=== PATIENT | male | born 1955 | race Caucasian/White ===

== ENCOUNTER → 2016-11-07 | Outpatient (CLI) | payer BC ==
[~2016-11-07] MED LIST: ASPI81TA28 PO; CHOL100010 PO; CYAN500T13 PO; FOLI1TAB7 PO; GADAVIST IV PRN; IBUP-1050 PO
--- NOTE | 2016-11-07 15:19 | DIAGNOSTIC IMAGING REPORT ---
Brain MRI WITH AND WITHOUT CONTRAST HISTORY: R68.89 [id number] TECHNIQUE: Multiplanar multisequence MRI of the brain was performed both before and after the intravenous administration of contrast. COMPARISON STUDY: Brain MRI 06/14/2011. FINDINGS: There is no mass, hematoma, midline shift, or acute infarct. The paranasal sinuses are clear. The mastoid air cells are clear. The ventricles and sulci demonstrate mild age-related involutional changes. Scattered foci of T2 hyperintensity seen within the periventricular and subcortical white matter are nonspecific but suggestive of mild microvascular ischemic changes. These are not significant changed. The major vascular flow voids at the skull base are well-maintained. Incidental note is made of a partially empty sella. IMPRESSION: No significant change compared to the prior study. No acute intracranial abnormality. Electronically signed by: Lc Loo M.D. 11/07/2016 3:18 PM Dictated Date/Time: 11/07/2016 3:00 PM
--- NOTE | 2016-12-28 17:20 | EEG Procedure Note ---
EEG Procedure Note Date of Service Dec 28, 2016. Start / End Times Start Time: 8AM End Time: 8:20AM Referring Physician Clarence History Episode of altered consciousness, patient feels spaced out at times Home Medication List Scheduled Aspirin (Aspirin Ec), 81 MG PO QPM Cholecalciferol (Vitamin D), 1,000 INTER.UNIT PO QPM Cyanocobalamin (Vitamin B12 500MCG), 1,000 MCG PO QPM Folic Acid (Folvite), 3 MG PO QPM Ibuprofen (Advil), 400 MG PO PRN Description This is a 21 electrode EEG with a single channel dedicated to limited EKG. The electrodes were placed in accordance with the International 10-20 system. There is a posterior dominant rhythm of 9-10 hertz which is specially distributed and attenuates with eye opening. There is a normal anterior to posterior organization. Photic stimulation is unremarkable. There is rare right frontal slowing in the delta frequency range. No epileptiform abnormalities observed. Interpretation This is a generally unremarkable or normal appearing EEG. However, there is rare right frontal delta slowing which could suggest focal neural dysfunction. No epileptiform abnormalities are observed, however. Clinical Correlation This is a generally unremarkable a normal appearing EEG. The rare right frontal delta slowing is of undetermined clinical significance although an underlying structural abnormality could be considered. Correlation with neuroimaging advised.
== END | disposition home or self-care (01) ==
LOC: C.MRI 13:49
PROVIDERS: ATTEND Family Medicine
DX: R68.89 Other general symptoms and signs (principal)

== ENCOUNTER → 2016-12-28 | Outpatient (CLI) | payer BC ==
[~2016-12-28] MED LIST changes: -GADAVIST IV PRN
== END | disposition home or self-care (01) ==
LOC: C.NEUR 07:55
PROVIDERS: ATTEND Psychiatry & Neurology Neurology
DX: R41.89 Other symptoms and signs involving cognitive functions and awareness (principal)

== ENCOUNTER → 2017-05-31 | Outpatient (CLI) | payer OTHER ==
[~2017-05-31] MED LIST changes: -FOLI1TAB7 PO; +FOLI1TAB8 PO
[2017-05-31 12:45] LABS: BLOOD UREA NITROGEN 20 mg/dl (7-18); CREATININE 0.84 mg/dl (0.60-1.40)
== END | disposition home or self-care (01) ==
LOC: C.LAB1850 10:54
PROVIDERS: ATTEND Family Medicine
DX: Z00.00 Encounter for general adult medical examination without abnormal findings (principal); D64.9 Anemia, unspecified

== ENCOUNTER → 2017-06-01 | Outpatient (CLI) | payer OTHER ==
[~2017-06-01] MED LIST changes: +GADAVIST IV PRN
--- NOTE | 2017-06-01 18:29 | DIAGNOSTIC IMAGING REPORT ---
MRI OF THE BRAIN COMBO CLINICAL HISTORY: Change in mental status. Unsteady gait. COMPARISON STUDY: MRI of the brain dated 11/07/2016. TECHNIQUE: MRI of the brain was performed utilizing various T1 and T2-weighted sequences in the axial, sagittal, and coronal planes. Contrast-enhanced sequences were acquired following the administration of 6 cc of Gadavist. FINDINGS: Brain parenchyma: There are age-related involutional changes noting mild subcortical and periventricular microangiopathic disease. There is no hemorrhage or mass effect. There is no restricted diffusion to suggest acute ischemia. No enhancing mass lesion is identified on the postcontrast images. Oneill-white matter differentiation is preserved. No extra-axial fluid collection is seen. The cerebellar tonsils are normal in configuration. Ventricles, sulci, and cisterns: Prominent secondary to involutional change. Pituitary and sella: Unremarkable. Intracranial vasculature: Normal flow voids are maintained at the skull base. Orbits: The bony orbits are grossly intact. Orbital contents are normal in appearance. Sinuses and mastoids: Clear. Calvarium: Unremarkable. Cervical cord: Partially visualized cervical spinal cord is normal in morphology and signal intensity. IMPRESSION: No acute intracranial abnormality. Electronically signed by: Lorenzo Porter M.D. 06/01/2017 6:28 PM Dictated Date/Time: 06/01/2017 6:25 PM
== END | disposition home or self-care (01) ==
LOC: C.MRI 17:36
PROVIDERS: ATTEND Family Medicine
DX: R26.81 Unsteadiness on feet (principal); R47.9 Unspecified speech disturbances; R41.89 Other symptoms and signs involving cognitive functions and awareness